=== PATIENT | female | born 1970 | race African-American/Black ===

== ENCOUNTER 2017-04-14 13:31 | Emergency (ER) | payer OTHER ==
[~2017-04-14] VITALS: Ht 149.9 cm; Wt 68.0 kg
[~2017-04-14 13:31] MED LIST: ACETAMINOPHEN; BACTRIM DS TABL1 TA1 PO; DARVOCET-N 1001 TAB PO; FLAGYL PO; FLEXERIL; KEFLEX PO; LISINOPRIL10 MG PO; MEDROL DOSEPAK4 MG PO; PRINIVIL10 MG PO; PYRIDIUM100 MG PO; VIBRAMYCIN100 M1 PO; VICODIN 5/500 T1 TAB
== END 2017-04-14 14:22 | disposition home or self-care (01) ==
LOC: CED 13:31
DX: I10 Essential (primary) hypertension (principal); I25.2 Old myocardial infarction; F17.210 Nicotine dependence, cigarettes, uncomplicated
CPT/HCPCS: 99283